=== PATIENT | female | born 2000 | race American Indian/Alaskan Native ===

== ENCOUNTER 2021-10-05 09:54 | Emergency (ER) | payer OTHER ==
[2021-10-05 12:44] VITALS: BP 106/71
[2021-10-05] MEDS ORDERED: AMOXICILLIN 500 MG CAP PO ONE (13:18)
[2021-10-05] MEDS ORDERED: dexAMETHasone 4 MG/ML VIAL IM ONE (13:18)
[2021-10-05] MEDS ORDERED: KETOROLAC 10 MG TAB PO ONE (13:18)
[2021-10-05] MEDS ORDERED: oxyCODONE /ACETAMINOPHEN 5-325MG TAB PO ONE (13:18)
--- NOTE | 2021-10-05 13:21 | Emergency Department Report ---
ED ENT HPI - General Chief complaint: Dental/Oral Stated complaint: FACIAL SWELLING TOOTH PAIN Time Seen by Provider: 10/05/21 13:09 Source: patient Mode of arrival: Ambulatory Limitations: No Limitations - History of Present Illness Initial comments: 21-year-old black female with no past medical history presents to the emergency department for evaluation of right facial swelling. She states that she has had a toothache for several days, and when she woke up this morning, she had increased pain with swelling to the right side of face. She denies fever. She states that pain was unresolved by [id number] ibuprofen and Tylenol. She states that she was supposed to have tooth removed in August but could not afford it. MD complaint: tooth pain -: Gradual, days(s) (2-3) Location: tooth # (3) Severity scale (0 -10): 8 Quality: aching Consistency: constant Context- Dental: history of dental caries, poor dental care Associated Symptoms: gum swelling, toothache. denies: fever, cough, pain with swallowing, sore throat, tinnitus, hearing loss, discharge from ear, rhinorrhea - Related Data Previous Rx's Medication Instructions Recorded Last Taken Type Acetaminophen/Codeine [Tylenol 1 tab PO Q6H PRN #12 tab 10/05/21 Unknown Rx /Codeine # 3 tab] Amoxicillin [Amoxicillin TAB] 875 mg PO BID #14 tab 10/05/21 Unknown Rx Ketorolac [Toradol] 10 mg PO Q6H PRN #12 tab 10/05/21 Unknown Rx Allergies Allergy/AdvReac Type Severity Reaction Status Date / Time No Known Allergies Allergy Verified 10/05/21 12:43 ED Dental HPI - General Chief complaint: Dental/Oral Stated complaint: FACIAL SWELLING TOOTH PAIN Time Seen by Provider: 10/05/21 13:09 Source: patient Mode of arrival: Ambulatory Limitations: No Limitations - Related Data Previous Rx's Medication Instructions Recorded Last Taken Type Acetaminophen/Codeine [Tylenol 1 tab PO Q6H PRN #12 tab 10/05/21 Unknown Rx /Codeine # 3 tab] Amoxicillin [Amoxicillin TAB] 875 mg PO BID #14 tab 10/05/21 Unknown Rx Ketorolac [Toradol] 10 mg PO Q6H PRN #12 tab 10/05/21 Unknown Rx Allergies Allergy/AdvReac Type Severity Reaction Status Date / Time No Known Allergies Allergy Verified 10/05/21 12:43 ED Review of Systems ROS: Stated complaint: FACIAL SWELLING TOOTH PAIN Other details as noted in HPI Comment: All other systems reviewed and negative Constitutional: denies: chills, fever Eyes: denies: eye pain, eye discharge, vision change ENT: dental pain. denies: ear pain, throat pain, hearing loss, congestion Respiratory: denies: cough, shortness of breath, SOB with exertion Cardiovascular: denies: chest pain, palpitations Gastrointestinal: denies: abdominal pain, nausea, vomiting Musculoskeletal: denies: back pain Neurological: denies: headache ED Past Medical Hx - Medications Home Medications: Home Medications Medication Instructions Recorded Confirmed Last Taken Type Acetaminophen/Codeine [Tylenol 1 tab PO Q6H PRN #12 tab 10/05/21 Unknown Rx /Codeine # 3 tab] Amoxicillin [Amoxicillin TAB] 875 mg PO BID #14 tab 10/05/21 Unknown Rx Ketorolac [Toradol] 10 mg PO Q6H PRN #12 tab 10/05/21 Unknown Rx ED Physical Exam - General Limitations: No Limitations General appearance: alert, in no apparent distress - Head Head exam: Present: atraumatic, normocephalic - Eye Eye exam: Present: normal appearance. Absent: conjunctival injection - Expanded ENT Exam Expanded Mouth exam: Present: normal external inspection Teeth exam: Present: dental caries, dental tenderness # (3), other (Erythema edema and abscess noted to gums around tooth #3) - Neck Neck exam: Present: normal inspection. Absent: tenderness, lymphadenopathy - Respiratory Respiratory exam: Absent: respiratory distress - Cardiovascular Cardiovascular Exam: Present: regular rate - GI/Abdominal GI/Abdominal exam: Absent: distended - Extremities Exam Extremities exam: Present: normal inspection - Back Exam Back exam: Present: normal inspection - Neurological Exam Neurological exam: Present: alert, oriented X3 - Psychiatric Psychiatric exam: Present: normal affect, normal mood - Skin Skin exam: Present: warm, dry, intact, normal color ED Course Vital Signs 10/05/21 10/05/21 10/05/21 12:42 13:31 13:53 Temperature 98.8 F 98.8 F Pulse Rate 68 68 Respiratory 16 18 18 Rate Blood Pressure 106/71 O2 Sat by Pulse 100 100 Oximetry ED Medical Decision Making - Medical Decision Making 21-year-old black female with no past medical history presents to the emergency department for evaluation of right facial swelling. She states that she has had a toothache for several days, and when she woke up this morning, she had increased pain with swelling to the right side of face. She denies fever. She states that pain was unresolved by [id number] ibuprofen and Tylenol. She states that she was supposed to have tooth removed in August but could not afford it. Symptoms and exam consistent with dental abscess. Patient was given Percocet, Toradol, first dose of amoxicillin, and a one-time dose of Decadron in the emergency department. She will be discharged home with 7-day course of amoxicillin and Toradol and Tylenol 3 to use as needed for pain. She is advised to take medications as prescribed and follow-up with dentist for further evaluation and management. She verbalized understanding of and agreement with plan of care. Critical care attestation.: If time is entered above; I have spent that time in minutes in the direct care of this critically ill patient, excluding procedure time. ED Disposition Clinical Impression: Dental abscess Disposition: HOME / SELF CARE / HOMELESS Is pt being admited?: No Does the pt Need Aspirin: No Condition: Stable Instructions: Dental Abscess, [id number], Preventive Dental Care, Adult Additional Instructions: Take medications as prescribed. Follow-up with dentist. Return to the emergency department as needed Prescriptions: Amoxicillin [Amoxicillin TAB] 875 mg PO BID #14 tab Ketorolac [Toradol] 10 mg PO Q6H PRN #12 tab PRN Reason: Pain Acetaminophen/Codeine [Tylenol /Codeine # 3 tab] 1 tab PO Q6H PRN #12 tab PRN Reason: Pain , Severe (7-10) Referrals: [facility] [Outside] - 3-5 Days [facility] [Outside] - 3-5 Days Forms: Work/School Release Form(ED) Time of Disposition: 13:21
== END 2021-10-05 13:54 | disposition home or self-care (01) ==
LOC: ED 09:54
DX: K04.7 Periapical abscess without sinus (principal)
CPT/HCPCS: 96372; 99282; J1100